=== PATIENT | female | born 1940 | race Caucasian/White ===

== ENCOUNTER → 2017-12-28 | Outpatient (CLI) | payer MEDICARE ==
[~2017-12-28] MED LIST: ADJUSTABLE COMM1 MIS; ASPI81TA23 PO; CALC250T PO; CALCTAB19 PO; CETI10 PO; CPMMACHINE; ESCI10TA PO; LISI10TA3 PO; LOSA50TA PO; OMEP20TA93 PO; REFRDRO EACH EYE; TURM500C7 PO; WALKER WHEELS/F1 MIS
[2017-12-28 08:51] LABS: HEMATOCRIT 34.5 % (35.0-46.0); HEMOGLOBIN 11.7 GM/DL (11.6-15.3); MEAN CELL VOLUME 84.7 FL (80.0-100.0); MEAN CORPUSCULAR HEMOGLOBIN 28.8 PG (27.0-34.0); MEAN PLATELET VOLUME 5.9 FL (7.0-11.0); PLATELET COUNT 371 TH/MM3 (150-450); RED BLOOD COUNT 4.07 MIL/MM3 (4.00-5.30); RED CELL DISTRIBUTION WIDTH 13.8 % (11.6-17.2); WHITE BLOOD COUNT 7.4 TH/MM3 (4.0-11.0)
[2017-12-28 08:58] LABS: PROTHROMBIN TIME - PATIENT 10.1 SEC (9.8-11.6)
[2017-12-28 09:06] LABS: BILIRUBIN, URINE NEG (NEG); BLOOD, URINE MOD (NEG); GLUCOSE,URINE NEG (NEG); KETONE, URINE NEG (NEG); MUCUS URINE FEW /lpf (OCC); NITRITE,URINE NEG (NEG); SQUAMOUS EPITHELIAL CELL URINE <1 /hpf (0-5); URINE COLOR YELLOW (YELLW/STRAW); URINE LEUKOCYTE ESTERASE NEG (NEG)
[2017-12-28 09:19] LABS: ALBUMIN 3.7 GM/DL (3.4-5.0); AST (GOT) 14 U/L (15-37); BICARBONATE 28.7 MEQ/L (21.0-32.0); BLOOD UREA NITROGEN 12 MG/DL (7-18); CALCIUM 9.2 MG/DL (8.5-10.1); CHLORIDE 104 MEQ/L (98-107); CREATININE 0.72 MG/DL (0.50-1.00); GLOMERULAR FILTRATION RATE 79 ML/MIN (>89); GLUCOSE,FASTING 88 MG/DL (74-99); SODIUM (NA) 139 MEQ/L (136-145)
[2017-12-28 09:20] LABS: ALT (GPT) 14 U/L (10-53)
[2017-12-28 09:22] LABS: ALKALINE PHOSPHATASE 92 U/L (45-117); TOTAL BILIRUBIN ADULT 0.5 MG/DL (0.2-1.0); TOTAL PROTEIN 7.6 GM/DL (6.4-8.2)
== END ==
LOC: CPRE 07:57
PROVIDERS: ATTEND Surgery
DX: Z01.812 Encounter for preprocedural laboratory examination (principal)
CPT/HCPCS: 36415; 80053; 81001; 85027; 85610; 85730

== ENCOUNTER 2018-01-04 05:18 | Inpatient (IN) | payer MEDICARE ==
--- NOTE | 2017-12-30 10:52 | MH ---
cc: Kimmy SALAZAR M.D. DATE OF ADMISSION: 01/04/2018 ADMISSION DIAGNOSIS Osteoarthritic degeneration right knee, now being admitted for right total knee arthroplasty. HISTORY AND PHYSICAL This is a pleasant 77-year female who is being admitted today for right total knee arthroplasty due to severe painful osteoarthritic degeneration, right knee. OTHER PAST HISTORY The patient has a history of hypertension, depression and anxiety. MEDICATIONS Current medications include: 1. Lisinopril. 2. Escitalopram. 3. Omeprazole. PAST SURGERIES Arthroscopy on her left knee in 2017, tonsillectomy and appendectomy. REVIEW OF SYSTEMS Noncontributory. FAMILY HISTORY Noncontributory. SOCIAL HISTORY She does not smoke or drink. ALLERGIES No known allergies. PHYSICAL EXAMINATION GENERAL: We find a 77-year-old female, well-developed, well-nourished, alert and oriented x3, complaining of pain in her right knee. VITAL SIGNS: Blood pressure 142/80, pulse 73 and regular, respirations 16, temperature 98.5, pulse oximetry 98% on room air. HEENT: Eyes PERRLA, EOMI. Ears, nose, mouth clear. NECK: Supple. LUNGS: Clear. HEART: Regular rate. ABDOMEN: Soft. Positive bowel sounds and nontender. EXTREMITIES: Reveals the right knee to be tender with crepitance on range of motion. Neurovascularly intact to her toes. IMPRESSION AT THIS TIME Osteoarthritic degeneration, right knee. PLAN Admission for right total knee arthroplasty today. The patient given prescription for postoperative pain and anticoagulation control in the office, understands to use Hibiclens scrub and Bactroban preoperatively and plans on going home with home health care after surgical stay in the hospital. MD MARK Dowell/RUSSELL /10:23 AM /10:30 AM
[2018-01-04] VITALS (7 sets, daily range): BP systolic 119–185; BP diastolic 75–88; PULSE 80–89; RESP 17–20; TEMP 96–98; O2SAT 95–99
[~2018-01-04] VITALS: Ht 158.8 cm; Wt 76.4 kg
[~2018-01-04 05:18] MED LIST changes: -ADJUSTABLE COMM1 MIS; -CPMMACHINE; -WALKER WHEELS/F1 MIS
[2018-01-04] MEDS ORDERED: EXPAREL PERI-ARTICULAR INJECTION (TOTAL VOL. 120 ML) P-ARTICULR SCH ×4 (06:15)
[2018-01-04] MEDS ORDERED: SODIUM CHLORIDE 0.9% IV SCH ×4 (06:15)
[2018-01-04] MEDS ORDERED: SODIUM CHLORID 0.9% 500 ML IV PRN (06:15)
[2018-01-04] MEDS ORDERED: TRANEXAMIC ACID IV SCH ×4 (06:15)
[2018-01-04] MEDS ORDERED: CHLORHEXIDINE GLUCONATE 4% SOLN 120 ML BTL TOPICAL SCH (06:15)
[2018-01-04] MEDS ORDERED: VANCOMYCIN 1000 MG/NS 250 ML (for <70 kg) IV SCH ×2 (06:15)
[2018-01-04] MEDS ORDERED: METOPROLOL TARTRATE 25 MG TAB PO PRN (06:15)
[2018-01-04] MEDS ORDERED: ceFAZolin 2 GM PREMIX 50 ML IV SCH (06:15)
[2018-01-04] MEDS ORDERED: CHLORHEXIDINE GLUCONATE 2 % 1 PACK (2 CLOTHS) TOPICAL PRN (06:15)
[2018-01-04] MEDS ORDERED: POVIDONE IODINE 5% (ANTISEPSIS KIT) 4 APPLICATIONS EACH NARE PRN (06:15)
[2018-01-04] MEDS ORDERED: LACTATED RINGER'S 1000 ML IV PRN (06:15)
[2018-01-04] MEDS ORDERED: DEXAMETHASONE SOD PHOS 20 MG/5 ML VIAL ONE (06:19)
[2018-01-04] MEDS ORDERED: ceFAZolin INJ 1,000 MG VIAL ONE (06:36)
[2018-01-04] MEDS ORDERED: SODIUM CHLORIDE 0.9% INJ 10 ML ONE (06:58)
[2018-01-04] MEDS ORDERED: BUPIVACAINE LIPOSOME PF 1.3% 20 ML VIAL ONE (06:59)
[2018-01-04] MEDS ORDERED: MIDAZOLAM HCL 2 MG/2 ML VIAL ONE (07:00)
--- NOTE | 2018-01-04 07:44 | HHI.FF ---
Face to Face Verification Diagnosis: (1) Status post total right knee replacement Physical Therapy Gait training Knee: Total knee, Protocol: Right, Gait training, Full weight bearing Nursing RN: 3 days/week x 2 weeks Nursing: Dressing changes Dressing Changes: Daily dressing change, 4x4s, Gauze, Paper tape I have seen patient Janice Rawls on 01/04/18. My clinical findings support the need for the requested home health care services because: Limited ability to care for self High risk of falls I certify that my clinical findings support that this patient is homebound because: Unsteady gait/balance Kimmy Perry MD Jan 04, 2018 07:44
[2018-01-04] MEDS ORDERED: MORPHINE SULFATE 4 MG/ML INJ IV PUSH PRN (07:45)
[2018-01-04] MEDS ORDERED: NALOXONE HCL 0.4 MG/ML AMP IV PUSH PRN (07:45)
[2018-01-04] MEDS ORDERED: ACETAMINOPHEN 325 MG TAB PO PRN (07:45)
[2018-01-04] MEDS ORDERED: TRANEXAMIC ACID INJ 0 MG in SODIUM CHLORIDE 0.9% INJ 100 ML IV SCH (07:45)
[2018-01-04] MEDS ORDERED: CETIRIZINE HCL 10 MG TAB PO PRN (07:45)
[2018-01-04] MEDS ORDERED: ACETAMINOPHEN/HYDROcodone 325 MG/7.5 MG TAB PO PRN (07:45)
[2018-01-04] MEDS ORDERED: diphenhydrAMINE HCL 50 MG/ML VIAL IV PUSH PRN (07:45)
[2018-01-04] MEDS ORDERED: ONDANSETRON HCL 4 MG/2 ML VIAL IVP PRN (07:45)
[2018-01-04] MEDS ORDERED: CPMMACHINE (07:46)
[2018-01-04] MEDS ORDERED: WALKER WHEELS/F1 MIS (07:46)
[2018-01-04] MEDS ORDERED: ADJUSTABLE COMM1 MIS (07:46)
[2018-01-04] MEDS ORDERED: CALCIUM CITRATE 250 MG PO SCH (09:00)
[2018-01-04] MEDS: LOSARTAN 50 MG TAB PO SCH (09:00)
[2018-01-04] MEDS ORDERED: TURMERIC ROOT EXTRACT PO SCH (09:00)
[2018-01-04] MEDS: ESCITALOPRAM OXALATE 10 MG TAB PO SCH (09:00)
--- NOTE | 2018-01-04 09:58 | HHI.PR ---
Immediate Post Op Note Procedure Date: Jan 04, 2018 Pre Op Diagnosis: Osteoarthritic degeneration right knee Post Op Diagnosis: Osteoarthritic degeneration right knee Surgeon: Suyapa Perry MD Drafter [employer] Design(s): Shana MUSA Procedure: Right Total Knee Arthroplasty Complications: none Specimen(s) removed: none Estimated blood loss: 100cc Anesthesia: General Drains: None IVF Urinary Output (mLs): 0 (no conner) Tourniquet time (min at mmHg) 46 mins at 300mmHg Patient to: PACU Patient Condition: Good Implant/Devices: SEE IMPLANT LOG (if applicable) Date/Time of Procedure: SEE SURGICAL CARE RECORD Shana Hill Jan 04, 2018 09:58
[2018-01-04] MEDS ORDERED: *morphine SULFATE 10 MG/ML PERIprocedure ONLY ONE ×3 (10:03→10:35)
[2018-01-04] MEDS: LACTATED RINGER'S 1000 ML INJ 1,000 ML IV SCH ×2 (10:15→21:02)
[2018-01-04] MEDS ORDERED: PANTOPRAZOLE SOD 20 MG DELAYED RELEASE TAB PO PRN (10:45)
[2018-01-04] MEDS ORDERED: DO NOT ADM ANY ANTICOAGULANT DRUGS PRN (11:30)
--- NOTE | 2018-01-04 11:31 | RADRPT ---
EXAM DATE/TIME: 01/04/2018 10:41 [facility] COMPARISON: No previous studies available for comparison. INDICATIONS : Post-op total right knee arthroplasty. MEDICAL HISTORY : Hypertension. SURGICAL HISTORY : None. ENCOUNTER: Initial ACUITY: 1 day PAIN SCORE: 9/10 LOCATION: Right knee. FINDINGS: Postsurgical features of right knee arthroplasty. Arthroplasty components are in anatomic alignment. No significant acute bony fracture. Immediate postsurgical soft tissue features. CONCLUSION: 1. Status post right knee arthroplasty in anatomic alignment without significant acute bony fracture. Jesús Lizama MD on January 04, 2018 at 11:12 Board Certified Radiologist. This report was verified electronically.
[2018-01-04] MEDS ORDERED: PROPOFOL 200 MG/20 ML AMP IV ONE (12:00)
[2018-01-04] MEDS ORDERED: ROCURONIUM INJ 50 MG/5 ML SYRINGE IV PUSH ONE (12:00)
[2018-01-04] MEDS ORDERED: KETOROLAC TROMETHAMINE 30 MG/ML (IVP) VIAL IV PUSH ONE (12:00)
[2018-01-04] MEDS ORDERED: LIDOCAINE HCL 1% PF 5 ML SYRINGE OTHER ONE (12:00)
[2018-01-04] MEDS ORDERED: ONDANSETRON HCL 4 MG/2 ML VIAL IV ONE (12:00)
[2018-01-04] MEDS ORDERED: Post-op Orders (for Pharmacy) XX ONE (14:00)
[2018-01-04] MEDS ORDERED: cloNIDine HCL 0.1 MG TAB PO PRN (14:00)
[2018-01-04] MEDS: ACETAMINOPHEN/HYDROcodone 325 MG/7.5 MG TAB PO PRN (15:55)
--- NOTE | 2018-01-04 16:08 | PD.CONS ---
HPI Service [facility] Consult Requested By Joel Perry M.D. Reason for Consult Hypertension and medical management Primary Care Physician Maranda Gilliland MD Diagnoses: (1) Osteoarthritis of right knee (2) Anxiety (3) Depression (4) Hypertension (5) Status post total right knee replacement History of Present Illness Patient is a 77-year-old female. Who underwent a right total knee arthroplasty today due to severe osteoarthritis. Patient's past medical history significant for hypertension depression and anxiety. Was noted to have elevated blood pressure earlier today. Therefore we have been consult to help with medical management and to help with her blood pressure. We will start her on Catapres when necessary for elevated blood pressure Thank you Dr. Perry for allowing us to participate in this most pleasant patient Review of Systems Constitutional: DENIES: Diaphoretic episodes, Fatigue, Fever, Weight gain, Weight loss, Chills, Dizziness, Change in appetite, Night Sweats Endocrine: DENIES: Abnorml menstrual pattern, Heat/cold intolerance, Polydipsia , Polyuria, Polyphagia Eyes: DENIES: Blurred vision, Diplopia, Eye inflammation, Eye pain, Vision loss , Photosensitivity Ears, nose, mouth, throat: DENIES: Tinnitus, Hearing loss, Vertigo, Nasal discharge, Oral lesions, Throat pain, Hoarseness Respiratory: DENIES: Apneas, Cough, Snoring, Wheezing, Hemoptysis, Sputum production Cardiovascular: DENIES: Chest pain, Palpitations, Syncope, Dyspnea on Exertion Gastrointestinal: DENIES: Abdominal pain, Black stools, Bloody stools, Constipation, Diarrhea, Nausea Genitourinary: DENIES: Abnormal vaginal bleeding, Dysmenorrhea, Dyspareunia, Sexual dysfunction, Vaginal discharge Musculoskeletal: COMPLAINS OF: Joint pain, Stiffness, Back pain, Neck pain, DENIES: Muscle aches, Joint Swelling Integumentary: DENIES: Abnormal pigmentation, Pruritus, Rash, Nail changes, Breast masses, Breast skin changes Hematologic/lymphatic: DENIES: Bruising, Lymphadenopathy Immunologic/allergic: DENIES: Eczema, Urticaria Neurologic: COMPLAINS OF: Abnormal gait, Poor Balance, DENIES: Headache, Localized weakness, Paresthesias, Seizures, Speech Problems, Tremor Psychiatric: COMPLAINS OF: Anxiety, Depression, DENIES: Confusion, Mood changes , Hallucinations, Agitation, Suicidal Ideation, Homicidal Ideation, Delusions Except as stated in HPI: all other systems reviewed are Neg Past Family Social History Allergies: Coded Allergies: lisinopril (Verified Allergy, Severe, Cough, 01/04/18) and lethargy No Known Allergies (Verified Allergy, Unknown, 01/04/18) Past Medical History Hypertension Depression Anxiety Obesity GERD Past Surgical History Arthroscopically of her left knee Tonsillectomy Appendectomy Reported Medications Reported Meds & Active Scripts Active Reported Calcium Citrate 250 Mg Calcium Tab 250 Mg PO DAILY Cetirizine (Cetirizine HCl) 10 Mg Tab 10 Mg PO DAILY PRN Aspirin EC (Aspirin) 81 Mg Tabdr 81 Mg PO DAILY Turmeric (Turmeric Root Extract) 500 Mg Capsule 1 Cap PO DAILY Calcium 600+D 200 (Calcium Carbonate-Vitamin D) 600-200 Mg-Unit Tab 1 Tab PO DAILY Losartan (Losartan Potassium) 50 Mg Tab 50 Mg PO DAILY Escitalopram (Escitalopram Oxalate) 10 Mg Tab 10 Mg PO DAILY Refresh Opth Drops (Polyvinyl Alcohol-Povidone Opth Drops) 1.4-0.6% Drops Unknown Dose EACH EYE PRN PRN Omeprazole 20 Mg Tab 20 Mg PO DAILY PRN Active Ordered Medications Current Medications Lactated Ringer's 1,000 ml @ 30 mls/hr Q24H PRN IV SEE LABEL COMMENTS Last administered on 01/04/18at 06:00; Start 01/04/18 at 06:15; Stop 01/07/18 at 06:14 Sodium Chloride 500 ml @ 30 mls/hr [id number] PRN IV SEE LABEL COMMENTS; Start 11/09 at 06:15; Stop 01/07/18 at 06:14 Metoprolol Tartrate (Lopressor) 25 mg OPERATIONS ENGINEER PRN PO SEE LABEL COMMENTS; Start 01/04/18 at 06:15; Stop 01/07/18 at 06:14 Povidone Iodine (Betadine 5% Antisepsis Kit) 1 applic OPERATIONS ENGINEER PRN EACH NARE SEE LABEL COMMENTS Last administered on 01/04/18at 06:13; Start 01/04/18 at 06:15 ; Stop 01/07/18 at 06:14 Chlorhexidine Gluconate (Chlorhexidine 2% Cloth) 3 pack OPERATIONS ENGINEER PRN TOPICAL SEE LABEL COMMENTS Last administered on 01/04/18at 05:30; Start 01/04/18 at 06:15 ; Stop 01/07/18 at 06:14 Chlorhexidine Gluconate (Hibiclens 4% Top Soln) 1 applic ONCE TOPICAL Last administered on 01/04/18at 06:05; Start 01/04/18 at 06:15; Stop 01/07/18 at 06:14 Cefazolin Sodium/ Dextrose 50 ml @ 100 mls/hr ONCE IV Last administered on 11/09at 08:13; Start 01/04/18 at 06:15; Stop 01/04/18 at 21:00 Vancomycin HCl 1000 mg/Sodium Chloride 250 ml @ 250 mls/hr OPERATIONS ENGINEER IV Last administered on 01/04/18at 06:45; Start 01/04/18 at 06:15; Stop 01/07/18 at 06:14 Tranexamic Acid 764 mg/Sodium Chloride 107.64 ml @ 200 mls/ hr ONCE IV Last administered on 01/04/18at 08:14; Start 01/04/18 at 06:15; Stop 01/04/18 at 21:00 Tranexamic Acid 764 mg/Sodium Chloride 107.64 ml @ 200 mls/ hr ONCE IV ; Start 01/04/18 at 06:15; Stop 01/04/18 at 21:00 Bupivacaine Liposome 20 ml/ Sodium Chloride 120 ml @ 240 mls/hr ONCE P- ARTICULR ; Start 01/04/18 at 06:15; Stop 01/05/18 at 06:14; Status Cancel Bupivacaine Liposome 20 ml/ Sodium Chloride 120 ml @ 240 mls/hr ONCE P- ARTICULR ; Start 01/04/18 at 06:15; Stop 01/04/18 at 21:00 Dexamethasone Sodium Phosphate (Decadron Inj) 20 mg STK-MED ONCE .ROUTE Last administered on 01/04/18at 06:15; Start 01/04/18 at 06:19; Stop 01/04/18 at 06:20 ; Status DC Cefazolin Sodium (Ancef Inj) 2,000 mg STK-MED ONCE .ROUTE Last administered on 01/04/18at 08:09; Start 01/04/18 at 06:36; Stop 01/04/18 at 06:37; Status DC Sodium Chloride 10 ml @ As Directed STK-MED ONCE .ROUTE ; Start 01/04/18 at 06: 58; Stop 01/04/18 at 06:59; Status DC Bupivacaine Liposome (Exparel Pf 1.3% Inj) 20 ml STK-MED ONCE .ROUTE Last administered on 01/04/18at 09:05; Start 01/04/18 at 06:59; Stop 01/04/18 at 07:00 ; Status DC Midazolam HCl (Versed Inj) 2 mg STK-MED ONCE .ROUTE ; Start 01/04/18 at 07:00; Stop 01/04/18 at 07:01; Status DC Cetirizine HCl (ZyrTEC) 10 mg DAILY PRN PO allergies; Start 01/04/18 at 07:45 Escitalopram Oxalate (Lexapro) 10 mg DAILY PO ; Start 01/04/18 at 09:00 Losartan Potassium (Cozaar) 50 mg DAILY PO ; Start 01/04/18 at 09:00 Calcium/Vitamin D (Oscal-D 250-125) 500 mg DAILY PO ; Start 01/05/18 at 09:00 Non-Formulary Medication 250 mg DAILY PO ; Start 01/04/18 at 09:00; Stop at 10:38; Status DC Pantoprazole Sodium (Protonix) 20 mg DAILY PRN PO GERD; Start 01/04/18 at 10:45 Non-Formulary Medication 1 cap DAILY PO ; Start 01/04/18 at 09:00; Stop at 10:39; Status DC Lactated Ringer's 1,000 ml @ 80 mls/hr [id number] IV Last administered on at 10:15; Start 01/04/18 at 07:41 Cefazolin Sodium 1000 mg/Sodium Chloride 100 ml @ 200 mls/hr Q6H IV Last administered on 01/04/18at 13:13; Start 01/04/18 at 14:00; Stop 01/05/18 at 02:29 Miscellaneous Information (Post-op Orders (for Pharmacy)) STAT ONCE XX ; Start 01/04/18 at 14:00; Stop 01/04/18 at 14:01; Status DC Acetaminophen/ Hydrocodone Bitart ([place] 7.5-325 Mg) 1 tab Q4H PRN PO PAIN LESS THAN 5 ON SCALE; Start 01/04/18 at 07:45 Acetaminophen/ Hydrocodone Bitart ([place] 7.5-325 Mg) 2 tab Q4H PRN PO PAIN SCALE 5 TO 10 Last administered on 01/04/18at 15:55; Start 01/04/18 at 07:45 Acetaminophen (Tylenol) 650 mg Q6H PRN PO FEVER; Start 01/04/18 at 07:45 Tranexamic Acid / Sodium Chloride 100 ml @ 200 mls/hr UNSCH IV ; Start at 07:45; Stop 01/04/18 at 10:40; Status DC Multivitamins/ Minerals Therapeutic (Theragran M Tab) 1 tab BID PO ; Start 01/05 at 21:00; Stop 03/06/18 at 20:59 Ondansetron HCl (Zofran Inj) 4 mg Q6H PRN IVP NAUSEA OR VOMITING; Start at 07:45 Docusate Sodium (Colace) 100 mg BID PO ; Start 01/05/18 at 21:00 Temazepam (Restoril) 15 mg HS PRN PO SLEEP; Start 01/04/18 at 21:00 Bacitracin (Bacitracin Oint Packet) 0.9 gm UNSCH X1 PRN TOP WOUND CARE; Start 01/06/18 at 10:15; Stop 01/08/18 at 10:14 Naloxone HCl (Narcan Inj) 0.4 mg UNSCH PRN IV PUSH RESPIRATORY RATE LESS THAN 10; Start 01/04/18 at 07:45 Diphenhydramine HCl (Benadryl Inj) 25 mg Q6H PRN IV PUSH ITCHING; Start at 07:45 Apixaban (Eliquis) 2.5 mg BID PO ; Start 01/05/18 at 09:00 Morphine Sulfate (Morphine Inj) 4 mg Q3H PRN IV PUSH PAIN GREATER THAN 6; Start 01/04/18 at 07:45 Morphine Sulfate (*morphine INJ PERIprocedure ONLY) 10 mg STK-MED ONCE .ROUTE Last administered on 01/04/18at 10:03; Start 01/04/18 at 10:03; Stop 01/04/18 at 10:04; Status DC Fentanyl Citrate (fentaNYL INJ) 100 mcg STK-MED ONCE .ROUTE ; Start 01/04/18 at 10:03; Stop 01/04/18 at 10:04; Status DC Fentanyl Citrate (fentaNYL INJ) 200 mcg STK-MED ONCE .ROUTE ; Start 01/04/18 at 10:04; Stop 01/04/18 at 10:05; Status DC Morphine Sulfate (*morphine INJ PERIprocedure ONLY) 10 mg STK-MED ONCE .ROUTE Last administered on 01/04/18at 10:16; Start 01/04/18 at 10:16; Stop 01/04/18 at 10:17; Status DC Morphine Sulfate (*morphine INJ PERIprocedure ONLY) 10 mg STK-MED ONCE .ROUTE Last administered on 01/04/18at 10:35; Start 01/04/18 at 10:35; Stop 01/04/18 at 10:36; Status DC Miscellaneous Information ALL NURSING DEPARTME... UNSCH PRN .XX SEE LABEL COMMENTS; Start 01/04/18 at 11:30; Stop 01/05/18 at 11:29 Clonidine (Catapres) 0.1 mg Q4H PRN PO SBP>160, DBP>90 Last administered on 11/09at 14:26; Start 01/04/18 at 14:00 Family History Hypertension in the family and arthritis Social History Denies any tobacco, alcohol, or illicits Physical Exam Vital Signs Vital Signs Date Time Temp Pulse Resp B/P (MAP) Pulse Ox O2 Delivery O2 Flow Rate FiO2 01/04/18 13:00 183/88 (119) 01/04/18 12:00 96.0 85 20 185/81 (115) 95 01/04/18 11:00 78 16 155/82 (106) 98 Nasal Cannula 2 01/04/18 10:45 78 16 157/80 (105) 97 Nasal Cannula 2 01/04/18 10:30 82 16 161/86 (111) 98 Nasal Cannula 2 01/04/18 10:15 88 16 149/77 (101) 98 Nasal Cannula 2 01/04/18 10:00 102 16 177/85 (115) 95 Nasal Cannula 2 01/04/18 09:56 97.7 104 16 181/89 (119) 92 Nasal Cannula 2 01/04/18 06:06 98.9 65 16 155/81 (105) 99 Physical Exam GENERAL: This is a well-nourished, well-developed patient, in no apparent distress. SKIN: No rashes, ecchymoses or lesions. Cool and dry. HEAD: Atraumatic. Normocephalic. No temporal or scalp tenderness. EYES: Pupils equal round and reactive. Extraocular motions intact. No scleral icterus. No injection or drainage. ENT: Nose without bleeding, purulent drainage or septal hematoma. Throat without erythema, tonsillar hypertrophy or exudate. Uvula midline. Airway patent. NECK: Trachea midline. No JVD or lymphadenopathy. Supple, nontender, no meningeal signs. CARDIOVASCULAR: Regular rate and rhythm without murmurs, gallops, or rubs. S1 and S2 no S3 or S4 RESPIRATORY: Clear to auscultation. Breath sounds equal bilaterally. No wheezes , rales, or rhonchi. GASTROINTESTINAL: Abdomen soft, non-tender, nondistended. No hepato-splenomegaly , or palpable masses. No guarding. Obese MUSCULOSKELETAL: Extremities without clubbing, cyanosis, or edema. No joint tenderness, effusion, or edema noted. No calf tenderness. Negative Homans sign bilaterally. Right knee is dressed and wrapped NEUROLOGICAL: Awake and alert. Cranial nerves II through XII intact. Motor and sensory grossly within normal limits. 4 out of 5 muscle strength in all muscle groups. Normal speech. Insight and judgment is good, mood and behavior is appropriate Imaging Last Impressions Knee X-Ray 01/04/18 0741 Signed Impressions: Service Date/Time: Thursday, January 04, 2018 10:41 - CONCLUSION: 1. Status post right knee arthroplasty in anatomic alignment without significant acute bony fracture. Jesús Lizama MD Assessment and Plan Problem List: (1) Status post total right knee replacement ICD Code: Z96.651 - Presence of right artificial knee joint (2) Osteoarthritis of right knee ICD Code: M17.11 - Unilateral primary osteoarthritis, right knee (3) Anxiety ICD Code: F41.9 - Anxiety disorder, unspecified (4) Depression ICD Code: F32.9 - Major depressive disorder, single episode, unspecified (5) Hypertension ICD Code: I10 - Essential (primary) hypertension Assessment and Plan Status post right total knee arthroplasty for severe osteoarthritis. Pain control per ORTHO Hypertension resume home medications and have when necessary Catapres GERD continue on PPI Depression anxiety continue on Lexapro DVT prophylaxis per orthopedic GI prophylaxis with PPI A.m. labs PT and OT to eval and treat Code Status Full code Discussed Condition With Patient and RN and family Todd Resendiz DO Jan 04, 2018 16:08
[2018-01-04] MEDS ORDERED: TEMAZEPAM 15 MG CAP PO PRN (21:00)
[2018-01-05 01:27] VITALS: BP 139/72; PULSE 77; RESP 20; TEMP 97.8; O2SAT 93
[2018-01-05] MEDS: ACETAMINOPHEN/HYDROcodone 325 MG/7.5 MG TAB PO PRN ×2 (02:03→12:13)
[2018-01-05 04:39] LABS: AUTOMATED NEUTROPHIL # 8.1 TH/MM3 (1.8-7.7); BASOPHIL % 0.1 % (0.0-2.0); HEMATOCRIT 27.1 % (35.0-46.0); HEMOGLOBIN 9.2 GM/DL (11.6-15.3); LYMPH % 14.1 % (9.0-44.0); LYMPHOCYTE # 1.5 TH/MM3 (1.0-4.8); MEAN CELL VOLUME 85.2 FL (80.0-100.0); MEAN CORPUSCULAR HEMOGLOBIN 28.8 PG (27.0-34.0); MEAN CORPUSCULAR HGB CONC 33.8 % (32.0-36.0); MONO % 10.4 % (0.0-8.0); MONOCYTE # 1.1 TH/MM3 (0-0.9); NEUT % 75.4 % (16.0-70.0); PLATELET COUNT 284 TH/MM3 (150-450); RED BLOOD COUNT 3.18 MIL/MM3 (4.00-5.30); RED CELL DISTRIBUTION WIDTH 13.8 % (11.6-17.2); WHITE BLOOD COUNT 10.8 TH/MM3 (4.0-11.0)
[2018-01-05 04:45] VITALS: BP 109/58; PULSE 80; RESP 17; TEMP 96.8; O2SAT 100
[2018-01-05 05:13] LABS: ALBUMIN 2.9 GM/DL (3.4-5.0); AST (GOT) 15 U/L (15-37); BICARBONATE 28.4 MEQ/L (21.0-32.0); BLOOD UREA NITROGEN 12 MG/DL (7-18); CALCIUM 8.4 MG/DL (8.5-10.1); CHLORIDE 104 MEQ/L (98-107); CREATININE 0.66 MG/DL (0.50-1.00); GLOMERULAR FILTRATION RATE 87 ML/MIN (>89); GLUCOSE,RANDOM 115 MG/DL (74-106); SODIUM (NA) 138 MEQ/L (136-145)
[2018-01-05 05:14] LABS: ALT (GPT) 17 U/L (10-53)
[2018-01-05 05:23] LABS: ALKALINE PHOSPHATASE 73 U/L (45-117); FREE T4 0.97 NG/DL (0.76-1.46); TOTAL BILIRUBIN ADULT 0.4 MG/DL (0.2-1.0); TOTAL PROTEIN 6.4 GM/DL (6.4-8.2)
[2018-01-05 08:00] VITALS: BP 153/65; PULSE 73; RESP 18; TEMP 96.7; O2SAT 97
[2018-01-05] MEDS: LACTATED RINGER'S 1000 ML INJ 1,000 ML IV SCH (08:41)
[2018-01-05] MEDS ORDERED: APIXABAN 2.5 MG TABLET PO SCH (09:00)
[2018-01-05] MEDS ORDERED: CALCIUM/VITAMIN D 250 MG/125 U TAB PO SCH (09:00)
[2018-01-05] MEDS: ESCITALOPRAM OXALATE 10 MG TAB PO SCH (09:11)
[2018-01-05] MEDS: LOSARTAN 50 MG TAB PO SCH (09:11)
--- NOTE | 2018-01-05 11:09 | PD.ORT.PN ---
Subjective Subjective Remarks Patient comfortable Objective Vitals Vital Signs Date Time Temp Pulse Resp B/P (MAP) Pulse Ox O2 Delivery O2 Flow Rate FiO2 01/05/18 08:00 96.7 73 18 153/65 (94) 97 01/05/18 04:45 96.8 80 17 109/58 (75) 100 01/04/18 23:50 97.0 89 17 121/80 (94) 99 01/04/18 21:09 97 01/04/18 19:50 97.5 89 18 119/75 (90) 98 01/04/18 16:38 96 21 01/04/18 16:00 98.0 80 18 130/79 (96) 95 01/04/18 13:00 183/88 (119) 01/04/18 12:00 96.0 85 20 185/81 (115) 95 I/O 01/04/18 01/04/18 01/04/18 01/05/18 01/05/18 01/05/18 07:00 15:00 23:00 07:00 15:00 23:00 Intake Total 1050 ml 360 ml 240 ml Output Total 3100 ml Balance -2050 ml 360 ml 240 ml Intake Oral 360 ml 240 ml IV Total 50 ml Other 1000 ml Output Estimated Blood Loss 100 ml Other 3000 ml # Voids 1 1 # Bowel Movements 0 0 Result Diagram: 01/05/18 0354 01/05/18 0354 Imaging Last 48 hours Impressions Knee X-Ray 01/04/18 0741 Signed Impressions: Service Date/Time: Thursday, January 04, 2018 10:41 - CONCLUSION: 1. Status post right knee arthroplasty in anatomic alignment without significant acute bony fracture. Jesús Lizama MD Objective Remarks Dressing dry and intact. She is neurovascularly intact to her toes. Assessment & Plan Ortho Post Op Day #: 1 Problem List: Assessment and Plan Home today with home Health care and physical therapy. Daily wound care. 2 office next week. Kimmy Perry MD Jan 05, 2018 11:09
--- NOTE | 2018-01-05 11:10 | HHI.DS ---
Discharge Summary Admission Date Jan 04, 2018 at 05:18 Discharge Date: Jan 05, 2018 Admitting Diagnosis Osteoarthritic degeneration right knee Diagnosis: (1) Status post total right knee replacement Diagnosis: Principal ICD Codes: Z96.651 - Presence of right artificial knee joint Brief History This is a 77 year old female patient CBC/BMP: 01/05/18 0354 01/05/18 0354 Significant Findings Laboratory Tests Test 01/05/18 03:54 Red Blood Count 3.18 MIL/MM3 (4.00-5.30) Hemoglobin 9.2 GM/DL (11.6-15.3) Hematocrit 27.1 % (35.0-46.0) Mean Platelet Volume 6.0 FL (7.0-11.0) Neutrophils (%) (Auto) 75.4 % (16.0-70.0) Monocytes (%) (Auto) 10.4 % (0.0-8.0) Neutrophils # (Auto) 8.1 TH/MM3 (1.8-7.7) Monocytes # (Auto) 1.1 TH/MM3 (0-0.9) Random Glucose 115 MG/DL (74-106) Albumin 2.9 GM/DL (3.4-5.0) Calcium Level 8.4 MG/DL (8.5-10.1) Estimat Glomerular Filtration Rate 87 ML/MIN (>89) PE at Discharge Dressing dry and intact. She is neurovascularly intact to her toes. Hospital Course Patient underwent a right total knee arthroplasty on day of admission. She received a course of prophylactic IV antibiotics and within 23 hours started anticoagulation therapy. She continued to improve tolerating food and fluid well was discharged the next day in good condition with instructions for home healthcare physical therapy and follow-up in the office. Pt Condition on Discharge: Good Discharge Disposition: Disch w/ Home Health Serv Discharge Instructions Diet Instructions: As Tolerated, No Restrictions Activities You Can Perform: Full Weight Bearing, Shower Only-No Bath Activities to Avoid: Bathing, Driving Kimmy Perry MD Jan 05, 2018 11:10
--- NOTE | 2018-01-05 11:37 | MP ---
cc: Kimmy SALAZAR M.D. DATE OF SURGERY 01/04/2018 PREOPERATIVE DIAGNOSIS Osteoarthritic degeneration right knee. POSTOPERATIVE DIAGNOSIS Osteoarthritic degeneration right knee. SURGERY PERFORMED Right total knee arthroplasty using Consensus components size 3 femur, 1 tibia, 1 patella, size 10 inserts with two batches of DePuy cement. SURGEON Dr. Salazar EDGER MACHINE OPERATOR LENCHO Duenas ANESTHESIA General intubation and block PROCEDURE After successful induction of anesthesia, the patient is placed on the operating room table in the supine position. The knee is prepped and draped in the usual manner. A tourniquet is inflated at the upper thigh and set to 300 mmHg pressure after exsanguination of the lower extremity. A longitudinal incision is made extending from 3 inches proximal to the superior pole of the patella, across the patella in longitudinal fashion, and down past the insertion of the tibial tubercle into the proximal tibia. The incision is carried down through subcutaneous tissue along the medial aspect of the patella and retinaculum, down through the capsule to expose the knee joint. The patella and patellar tendon are freed up enough to allow the patella to be inverted and retracted off the lateral side of the knee joint. The knee joint is left exposed. Small osteophytes are removed. All soft tissue is removed to allow proper position of the femoral and tibial cutting jig guide. The first femoral jig is then inserted along the distal end of the femur after first measuring to decide whether this is a small, medium, or large component. The notch is then drilled and the tibial cutting guide inserted into the femoral cutting guide, along with the ankle brace to allow for proper measurement of the tibial cutting surface that needed to be resected. Pins are inserted into the tibial cutting jig and femoral cutting jig to hold them in place. An oscillating saw is then used to resect the surface of the tibia. The surface of the tibia is then completely removed using sharp and blunt dissection. The anterior and posterior cuts of the femur are then made as well using an oscillating saw through the cutting guide. All guides are then removed and the varus/valgus angulation cutting guide applied to the femur for proper measurement of the proper amount of valgus. The anterior cutting guide for the femur is then inserted at the anterior femoral cuts made. Next, the first block trial is inserted into the femur to allow for proper condyle drill holes to be made which are then made followed by removal of the bone between the condyles using an oscillating saw as well as the bone removed at the most posterior surface of the condyle. After this, this guide is removed and the chamfer cuts made using the chamfer cutting guide from both anterior and posterior. Next, the femoral trial is then inserted, the tibial surface reflected anterior to expose the tibial surface and a tibial stem guide is inserted after first measuring for a standard, standard plus, large, or large plus surface to be used. After the stem is impacted the trial tibial surface is applied followed by the trial meniscal components. After full range of motion is found with the appropriate length meniscal components varying the patella is prepared by resecting the posterior aspect of the patella using an oscillating saw, inserting a trial. The trial is then removed and the cruciate cutting guide applied using the bur to cut the cruciate cuts. After cruciate cuts are made all trials are removed. The wound is irrigated copiously with antibiotic solution and Water Pik and the actual components inserted into place using Consensus components size 3 femur, 1 tibia, 1 patella, size 10 inserts with two batches of [employer] cement.. After the cement has hardened and the components are found to have full range of motion with no instability, the tourniquet is deflated, total tourniquet time being 46 minutes at 300 mmHg pressure. 120 cc of Exparel is used around the knee joint for extra pain control. Meticulous hemostasis achieved. The deep fascia is reapproximated with running #2 Quill and interrupted with #1 Vicryl suture, the subcutaneous tissue approximated using interrupted and running 2-0 and 4-0 Monocryl sutures, Steri-Strips, sterile dressing and knee immobilizer. DRAINS No drain utilized. ESTIMATED BLOOD LOSS 100 cc. COUNTS Sponge and suture counts were correct. The patient tolerated the procedure well and left the Operating Room in satisfactory condition. Meena MUSA was present during the entire procedure to include patient positioning and the procedure. The medical necessity of a nurse practitioner and assistant shift supervisor was indicated in this case due to the surgical complexity of the case itself. During the surgical case the geotechnicial properties technician was working the back table while my acute care assistant LENCHO was directly assisting me. MD MARK Dowell/MARY /9:38 AM /11:13 AM
[2018-01-05 12:00] VITALS: BP 164/74; PULSE 83; RESP 18; TEMP 98.8; O2SAT 97
[2018-01-05 13:29] VITALS: RESP 16
[2018-01-05 16:27] LABS: HEMOGLOBIN A1C 5.2 % (4.3-6.0)
[2018-01-05] MEDS ORDERED: DOCUSATE SODIUM 100 MG CAP PO SCH (21:00)
[2018-01-05] MEDS ORDERED: MULTIVITAMINS/MINERALS THERAPEUTIC TAB PO SCH (21:00)
[2018-01-06] MEDS ORDERED: BACITRACIN OINT 0.9 GM PKT TOP PRN (10:15)
== END 2018-01-05 14:46 | disposition home health service (06) | DRG 470 ==
LOC: HSDI 05:18 → N06B 11:30
PROVIDERS: ADMIT Surgery; ATTEND Surgery
PROC: 3E0T3BZ Introduction of Anesthetic Agent into Peripheral Nerves and Plexi, Percutaneous Approach (ICD-10-PCS; 2018-01-04)
PROC: 0SRC0J9 Replacement of Right Knee Joint with Synthetic Substitute, Cemented, Open Approach (ICD-10-PCS; principal; 2018-01-04 07:25)
DX: M17.11 Unilateral primary osteoarthritis, right knee (principal); I10 Essential (primary) hypertension; K21.9 Gastro-esophageal reflux disease without esophagitis; M25.761 Osteophyte, right knee; E66.9 Obesity, unspecified; F32.9 Major depressive disorder, single episode, unspecified; F41.9 Anxiety disorder, unspecified; Z68.30 Body mass index [BMI] 30.0-30.9, adult
CPT/HCPCS: 73560; 80053; 83036; 83735; 84100; 84439; 84443; 85025; 86850; 86900; 86901; 94150; C1776; C9290; J0690; J1100; J1885; J2250; J2270; J2405; J3010; J3370; J7050; J7120; L1830